=== PATIENT | female | born 1990 | race Two or more races ===

== ENCOUNTER 2023-08-27 15:15 | Inpatient (IN) ==
[2023-08-28] MEDS ORDERED: LIDOCAINE 1% LOCAL 20 ML VIAL INFIL PRN (08:11)
[2023-08-28] MEDS ORDERED: OXYTOCIN 30 UNITS/NSS 30 UNITS/500 ML BAG IV PRN ×2 (08:11→09:27)
[2023-08-28] MEDS: LACTATED RINGER'S 1,000 ML IV PRN ×4 (08:20→23:12)
[2023-08-28 08:48] LABS: Hematocrit (blood only) 36.1 % (37.0-47.0); Mean Corpuscular Hemoglobin 26.8 pg (25.0-34.0); Mean Corpuscular Hgb Conc 33.2 g/dL (32.0-36.0); Mean Corpuscular Volume 80.6 fL (80.0-100.0); Mean Platelet Volume 11.1 fL (9.4-12.4); Platelet Count 245 K/uL (130-400); RDW Coefficient of Variation 15.6 % (11.5-14.5); RDW Standard Deviation 45.1 fL (36.4-46.3); Red Blood Count 4.48 M/uL (4.20-5.40); White Blood Count 6.89 K/ul (4.8-10.8)
--- NOTE | 2023-08-28 09:03 | History & Physical Report ---
Date of Service August 28, 2023 Assessment & Plan (1) Encounter for induction of labor: (2) Postmaturity , 40-42 weeks gestation: Plan Fetus category one. Successful placement of doherty bulb, tolerated suprisingly well. Plan to start low dose pit and reassess. anticipate . Admission and Anticipated Discharge Date Admission Date: August 28, 2023 History of Present Illness Chief Complaint: iol postdates Primary Care Provider: NO PCP Patient is a 33yoif with iup at 40 3/7 weeks who presents to labor and delivery for iol for postdates. she notes occasional contraction. no lof/vb. Notes good fm. Patient did not tolerate exam in the office yesterday. After discussion, the patient would like to attempt placement of doherty bulb first and see how she tolerates. and Delivery Plans IOL Post-Dates 08/28 Poor tolerance of exam. OB Labs: Blood Type A Positive 01/16/23 Antibody Screen NEGATIVE 01/16/23 Hemoglobin 11.6 g/dl (12.0-16.0) L 07/18/23 Hematocrit 34.7 % (37.0-47.0) L 07/18/23 Mean Corpuscular Volume 81.1 fL (80.0-100.0) 07/18/23 Platelet Count 275 K/uL (130-400) 07/18/23 Rubella IgG Antibody Immune (Immune) 01/16/23 Rapid Plasma Reagin Nonreactive (Nonreactive) 01/16/23 Hepatitis B Surface Antigen. NON-REACTIVE (NON-REACTIVE) 01/16/23 Hepatitis C Antibody (EIA) NON-REACTIVE (NON-REACTIVE) 01/16/23 HIV (1&2) Ag and Ab Confirmation NON-REACTIVE (NON-REACTIVE) 01/16/23 Glucose 1 Hour 50 gm Load 97 mg/dl (70-130) 06/05/23 OB Optional Labs: Chlamydia trachomatis RNA Not Detected (NotDetected) 01/16/23 Neisseria gonorrhoeae RNA Not Detected (NotDetected) 01/16/23 Thyroid Stimulating Hormone (TSH) 0.621 uIu/ml (0.300-4.500) 01/03/23 Labs Reviewed: gbs negative--akh Allergies Allergy/AdvReac Type Severity Reaction Status Date / Time No Known Allergies Allergy Verified 08/27/23 14:32 Home Medications Medication Instructions Recorded Confirmed Type ondansetron 4 mg disintegrating 4 mg PO Q6H PRN nausea and 05/08/23 08/27/23 Rx tablet vomiting #30 tabs polysaccharide iron complex 150 mg 150 mg PO DAILY #30 caps 07/18/23 08/27/23 Rx iron capsule (iFerex 150) Patient History Medical History UTI (urinary tract infection) History of chicken pox Surgical History No history of previous surgery Family History Father PADMA-19 Denies family history of Ovarian cancer Breast cancer Colorectal cancer Social History Smoking Status: Never smoker Do You Dip or Chew Tobacco: No; Hx Alcohol Use: No Hx Substance Use: No Preferred Language: [place] Island[place] Radiation Control Technician Required: No Beliefs That Will Affect Care: None marital status: marital status details: Tavo (31) [phone] Current Living Situation: Spouse Current Living Situation Comment: lives with spouse, no pets current occupational status: unemployed Feels Safe at Home: Yes Safety Concerns: Feels Safe At This Time Assistive Devices: None OB History g1--present 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 Small amount of bleeding with placement. toco--occasional contraction efm--130s with mod variability, accels to 150s, no decels Results & Data Vital Signs (Past 12 Hours) Vital Signs Temp Pulse Resp BP 08/28/23 08:30 36.7 C 19 08/28/23 08:07 36.7 C 100 H 19 121/75 Coding Level of Care Code None Diagnoses Encounter for induction of labor Z34.90 Postmaturity , 40-42 weeks gestation O48.0
[2023-08-28] MEDS ORDERED: BUTORPHANOL TARTRATE 1 MG/ML VIAL IV ONE (13:17)
--- NOTE | 2023-08-28 13:17 | Labor Progress Brief Note ---
Date of Service August 28, 2023 Subjective Patient starting to get uncomfortable with contractions. NOtes back pain. WAs up to the br and ? lof. However, has not had continued leaking. Have pulled on catheter and still in cervix. Assessment & Plan (1) Postmaturity , 40-42 weeks gestation: (2) Encounter for induction of labor: Plan continue current management. fetus category one. can use stadol if desires. epidural on demand. Admission and Anticipated Discharge Date Admission Date: August 28, 2023 Physical Exam Constitutional: WD/WN, vitals as above Psychiatric: A+Ox3, euthymic affect Genitourinary: cx--deferred toco--q2-4min, pit at 6 efm--1130s with mod variability, small acces, no decels Results & Data Vital Signs (Past 12 Hours) Vital Signs Temp Pulse Resp BP 08/28/23 12:46 68 08/28/23 12:46 141/85 H 08/28/23 12:45 83 08/28/23 12:45 151/96 H 08/28/23 08:30 36.7 C 19 08/28/23 08:07 36.7 C 100 H 19 121/75 Coding Level of Care Code None Diagnoses Postmaturity , 40-42 weeks gestation O48.0 Encounter for induction of labor Z34.90
--- NOTE | 2023-08-28 16:17 | Labor Progress Brief Note ---
Date of Service August 28, 2023 Subjective Patient uncomfortable but breathing through contractions. c/o back pain Assessment & Plan (1) Postmaturity , 40-42 weeks gestation: (2) Encounter for induction of labor: Plan mostly category one, rare variable. continue current plan. Admission and Anticipated Discharge Date Admission Date: August 28, 2023 Physical Exam Physical Exam: cx--deferred pulled on balloon and did not budge toco--q3-4min, pit at 8 efm--130s wtih mod variability, accels present, rare variable Results & Data Vital Signs (Past 12 Hours) Vital Signs Temp Pulse Resp BP 08/28/23 16:14 76 08/28/23 16:14 123/79 08/28/23 15:47 71 08/28/23 15:47 109/67 08/28/23 15:17 71 08/28/23 15:17 134/78 08/28/23 14:47 71 08/28/23 14:47 128/80 08/28/23 14:18 20 08/28/23 14:18 20 08/28/23 14:18 75 08/28/23 14:18 140/85 08/28/23 13:17 63 08/28/23 13:17 123/75 08/28/23 12:46 68 08/28/23 12:46 141/85 H 08/28/23 12:45 83 08/28/23 12:45 151/96 H 08/28/23 08:30 36.7 C 19 08/28/23 08:07 36.7 C 100 H 19 121/75 Coding Level of Care Code None Diagnoses Postmaturity , 40-42 weeks gestation O48.0 Encounter for induction of labor Z34.90
--- NOTE | 2023-08-28 18:10 | Labor Progress Brief Note ---
Date of Service August 28, 2023 Subjective Patient sitting at bedside, breathing through contractions. Nursing notes lengthing of doherty and bloody show Assessment & Plan (1) Postmaturity , 40-42 weeks gestation: (2) Encounter for induction of labor: Plan doherty did a great job. Now likely in active labor. Plan epidural now. fetus overall category one. anticipate . Admission and Anticipated Discharge Date Admission Date: August 28, 2023 Physical Exam Physical Exam: balloon removed cs--4-5/80/-2, palpate a bag toco--q2-4min efm--140s wtih mod variability, accels present, rare variable Results & Data Vital Signs (Past 12 Hours) Vital Signs Temp Pulse Resp BP 08/28/23 16:14 76 08/28/23 16:14 123/79 08/28/23 15:47 71 08/28/23 15:47 109/67 08/28/23 15:17 71 08/28/23 15:17 134/78 08/28/23 14:47 71 08/28/23 14:47 128/80 08/28/23 14:18 20 08/28/23 14:18 20 08/28/23 14:18 75 08/28/23 14:18 140/85 08/28/23 13:17 63 08/28/23 13:17 123/75 08/28/23 12:46 68 08/28/23 12:46 141/85 H 08/28/23 12:45 83 08/28/23 12:45 151/96 H 08/28/23 08:30 36.7 C 19 08/28/23 08:07 36.7 C 100 H 19 121/75 Coding Level of Care Code None Diagnoses Postmaturity , 40-42 weeks gestation O48.0 Encounter for induction of labor Z34.90
[2023-08-28] MEDS ORDERED: ePHEDrine sulfate 50 MG/ML AMP ONE (18:12)
[2023-08-28] MEDS ORDERED: fentaNYL citrate PF 100 MCG/2 ML VIAL ONE (18:12)
[2023-08-28] MEDS ORDERED: SODIUM CHLORIDE 0.9% PF INJ 10 ML VIAL ONE (18:13)
[2023-08-28] MEDS ORDERED: LIDOCAINE 2%/EPINEPHRINE 1:200,000 20 ML PF ONE (18:13)
[2023-08-28] MEDS ORDERED: BUPIVACAINE 0.25% PF 30 ML VIAL ONE (18:13)
[2023-08-28] MEDS ORDERED: fentANYL 2 MCG/ML BUPIVacaine 0.125%-NSS 100ML BAG ONE (18:13)
--- NOTE | 2023-08-28 18:50 | Anesthesiology Consultation ---
Date of Service August 28, 2023 Assessment & Plan Chart Review Chart Review: Acceptable Risk for Labor Epidural Consults Requested none History Height/Weight Height: 5 ft 3 in Weight: 63.796 kg Allergies Allergy/AdvReac Type Severity Reaction Status Date / Time No Known Allergies Allergy Verified 08/27/23 14:32 Medications Home Medications Medication Instructions Recorded Confirmed Last Taken ondansetron 4 mg disintegrating 4 mg PO Q6H PRN nausea and 05/08/23 08/27/23 Unknown tablet vomiting #30 tabs polysaccharide iron complex 150 mg 150 mg PO DAILY #30 caps 07/18/23 08/27/23 Unknown iron capsule (iFerex 150) Active Medications Generic Name Dose Route Start Last Admin Trade Name Freq PRN Reason Stop Dose Admin Lactated Ringer's 1,000 mls @ 125 mls/hr 08/28/23 08:11 08/28/23 18:05 Lr IV 08/30/23 08:10 999 mls/hr .Q8H PRN Infusion L&D Protocol Protocol Oxytocin 30 units in 500 mls @ 11 mls/hr 08/28/23 09:27 08/28/23 17:38 Pitocin 30 Units/Nss IV 08/30/23 09:26 0.66 units/hr .Q24H PRN 11 mls/hr Labor Induction/Augmentation Titration Protocol 0.66 UNITS/HR Past Medical History Medical History UTI (urinary tract infection) History of chicken pox Past Family History Family History Father COVID-19 Denies family history of Ovarian cancer Breast cancer Colorectal cancer Past Surgical History Surgical History No history of previous surgery Social History Smoking Status: Never smoker Do You Dip or Chew Tobacco: No Hx Alcohol Use: No Hx Substance Use: No Physical Exam Vital Signs Last Vital Signs Temp 36.7 C 08/28/23 08:30 Pulse 117 H 08/28/23 18:47 Resp 20 08/28/23 14:18 BP 101/59 L 08/28/23 18:47 Pulse Ox 99 01/25/24 18:46 Testing Laboratory Results 08/28/23 08:25
[2023-08-28] MEDS ORDERED: ePHEDrine sulfate 50 MG/ML AMP IV PRN (18:52)
[2023-08-28] MEDS ORDERED: LIDOCAINE 2% MPF LOCAL 5 ML VIAL EPI PRN (18:52)
[2023-08-28] MEDS ORDERED: fentaNYL citrate PF 100 MCG/2 ML VIAL EPI PRN (18:52)
[2023-08-28] MEDS ORDERED: SODIUM CHLORIDE 0.9% PF INJ 10 ML VIAL EPI PRN (18:52)
[2023-08-28] MEDS ORDERED: LIDOCAINE 2%/EPINEPHRINE 1:200,000 20 ML PF EPI STA (18:52)
[2023-08-28] MEDS ORDERED: diphenhydrAMINE 50 MG/ML VIAL IV PRN (18:52)
[2023-08-28] MEDS ORDERED: SODIUM CHLORIDE 0.9% PF INJ 10 ML VIAL EPI STA (18:52)
[2023-08-28] MEDS ORDERED: NALOXONE HCL 0.4 MG/1 ML VIAL/CARP IV PRN (18:52)
[2023-08-28] MEDS ORDERED: BUPIVACAINE 0.25% PF 30 ML VIAL EPI PRN (18:52)
[2023-08-28] MEDS ORDERED: ROPIVACAINE 0.5% PF 5 MG/ML 20 ML VIAL EPI PRN (18:52)
[2023-08-28] MEDS ORDERED: fentANYL 2 MCG/ML BUPIVacaine 0.125%-NSS 100ML BAG EPI PRN (18:52)
[2023-08-28] MEDS ORDERED: BUPIVACAINE 0.25% PF 30 ML VIAL EPI STA (18:52)
[2023-08-28] MEDS ORDERED: fentaNYL citrate PF 100 MCG/2 ML VIAL EPI STA (18:52)
[2023-08-28] MEDS ORDERED: NALBUPHINE HCL 5 MG in SYRINGE 0 ML IV PRN (18:52)
[2023-08-28] MEDS ORDERED: NALOXONE HCL 1 MG in SODIUM CHLORIDE 0.9% 1,000 ML IV PRN (18:52)
--- NOTE | 2023-08-28 22:01 | Labor Progress Brief Note ---
Date of Service August 28, 2023 Subjective comfortable Assessment & Plan (1) Postmaturity , 40-42 weeks gestation: (2) Encounter for induction of labor: Plan continue current management. fetus overall reassuring category 2 secondary to variables. Admission and Anticipated Discharge Date Admission Date: August 28, 2023 Physical Exam Physical Exam: cx--5/80/-2 arom--clear toco--q3-4min, pit at 15 efm--150s with mod variability, small accels, +scalp stim, rare variable. Results & Data Vital Signs (Past 12 Hours) Vital Signs Temp Pulse Resp BP Pulse Ox O2 Del Method 08/28/23 21:56 97 08/28/23 21:56 100 H 08/28/23 21:55 82 08/28/23 21:55 104/61 08/28/23 21:51 99 08/28/23 21:51 91 H 08/28/23 21:46 99 08/28/23 21:46 103 H 08/28/23 21:41 98 08/28/23 21:41 80 08/28/23 21:41 85 08/28/23 21:41 107/68 08/28/23 21:36 97 08/28/23 21:36 77 08/28/23 21:31 98 08/28/23 21:31 104 H 08/28/23 21:30 16 08/28/23 21:30 16 08/28/23 21:26 97 08/28/23 21:26 88 08/28/23 21:21 98 08/28/23 21:21 88 08/28/23 21:16 98 08/28/23 21:16 75 08/28/23 21:11 98 08/28/23 21:11 96 H 08/28/23 21:06 98 08/28/23 21:06 76 08/28/23 21:01 98 08/28/23 21:01 93 H 08/28/23 21:00 16 08/28/23 21:00 16 08/28/23 20:56 99 08/28/23 20:56 74 08/28/23 20:55 85 08/28/23 20:55 115/67 08/28/23 20:51 99 08/28/23 20:51 84 08/28/23 20:46 97 08/28/23 20:46 72 08/28/23 20:41 98 08/28/23 20:41 78 08/28/23 20:40 18 08/28/23 20:40 36.8 C 18 08/28/23 20:40 97 H 08/28/23 20:40 106/61 08/28/23 20:36 100 08/28/23 20:36 111 H 08/28/23 20:31 99 08/28/23 20:31 86 08/28/23 20:31 114 H 08/28/23 20:31 114/70 08/28/23 20:30 18 08/28/23 20:30 18 08/28/23 20:26 98 08/28/23 20:26 65 08/28/23 20:26 125 H 08/28/23 20:26 104/71 08/28/23 20:22 75 08/28/23 20:22 125/74 08/28/23 20:21 97 08/28/23 20:21 70 08/28/23 20:17 71 08/28/23 20:17 138/63 08/28/23 20:16 98 08/28/23 20:16 74 08/28/23 20:12 67 08/28/23 20:12 123/70 08/28/23 20:11 97 08/28/23 20:11 66 08/28/23 20:06 99 08/28/23 20:06 124 H 08/28/23 20:06 69 08/28/23 20:06 126/72 08/28/23 20:01 97 08/28/23 20:01 123 H 08/28/23 20:01 76 08/28/23 20:01 123/73 08/28/23 20:00 16 08/28/23 20:00 16 08/28/23 19:56 98 08/28/23 19:56 67 08/28/23 19:56 126 H 08/28/23 19:56 86/61 L 08/28/23 19:51 97 08/28/23 19:51 71 08/28/23 19:51 125/71 08/28/23 19:46 97 08/28/23 19:46 71 08/28/23 19:46 122/68 08/28/23 19:41 99 08/28/23 19:41 72 08/28/23 19:41 108/65 08/28/23 19:36 99 08/28/23 19:36 67 08/28/23 19:31 98 08/28/23 19:31 79 08/28/23 19:30 16 08/28/23 19:30 16 08/28/23 19:30 72 08/28/23 19:30 131/70 08/28/23 19:26 99 08/28/23 19:26 110 H 08/28/23 19:22 106 H 08/28/23 19:22 93/51 L 08/28/23 19:21 98 08/28/23 19:21 103 H 08/28/23 19:20 Room Air 08/28/23 19:18 102 H 08/28/23 19:18 107/59 L 08/28/23 19:16 100 08/28/23 19:16 64 08/28/23 19:14 75 08/28/23 19:14 118/69 08/28/23 19:13 18 08/28/23 19:13 36.6 C 18 08/28/23 19:11 98 08/28/23 19:11 99 H 08/28/23 19:09 110 H 08/28/23 19:09 114/70 08/28/23 19:08 96 H 08/28/23 19:08 106/66 08/28/23 19:06 100 08/28/23 19:06 95 H 08/28/23 19:05 74 08/28/23 19:05 134/75 08/28/23 19:04 80 08/28/23 19:04 122/72 08/28/23 19:01 98 08/28/23 19:01 96 H 08/28/23 19:01 104/68 08/28/23 18:59 87 08/28/23 18:59 102/61 08/28/23 18:57 75 08/28/23 18:57 96/53 L 08/28/23 18:56 100 08/28/23 18:56 76 08/28/23 18:56 98/56 L 08/28/23 18:56 92 H 08/28/23 18:56 91/42 L 08/28/23 18:54 92 H 08/28/23 18:54 136/57 L 08/28/23 18:52 107 H 08/28/23 18:52 118/69 08/28/23 18:51 98 08/28/23 18:51 110 H 08/28/23 18:49 85 08/28/23 18:49 106/55 L 08/28/23 18:47 117 H 08/28/23 18:47 101/59 L 08/28/23 18:46 99 08/28/23 18:46 109 H 08/28/23 18:45 98 H 08/28/23 18:45 107/57 L 08/28/23 18:43 102 H 08/28/23 18:43 106/60 08/28/23 18:41 98 08/28/23 18:41 71 08/28/23 18:41 113/63 08/28/23 18:39 78 08/28/23 18:39 121/74 08/28/23 18:38 71 08/28/23 18:38 131/71 08/28/23 18:36 100 08/28/23 18:36 83 08/28/23 18:31 99 08/28/23 18:31 76 08/28/23 18:26 75 L 08/28/23 18:26 87 08/28/23 18:26 74 L 08/28/23 18:26 87 08/28/23 16:14 76 08/28/23 16:14 123/79 08/28/23 15:47 71 08/28/23 15:47 109/67 08/28/23 15:17 71 08/28/23 15:17 134/78 08/28/23 14:47 71 08/28/23 14:47 128/80 08/28/23 14:18 20 08/28/23 14:18 20 08/28/23 14:18 75 08/28/23 14:18 140/85 08/28/23 13:17 63 08/28/23 13:17 123/75 08/28/23 12:46 68 08/28/23 12:46 141/85 H 08/28/23 12:45 83 08/28/23 12:45 151/96 H Coding Level of Care Code None Diagnoses Postmaturity , 40-42 weeks gestation O48.0 Encounter for induction of labor Z34.90
[2023-08-28] MEDS ORDERED: ONDANSETRON INJ 2 MG/ML 2 ML VIAL IV PRN (22:05)
--- NOTE | 2023-08-29 00:28 | Labor Progress Brief Note ---
Date of Service August 29, 2023 Subjective comfortable , resting Assessment & Plan (1) Postmaturity , 40-42 weeks gestation: (2) Encounter for induction of labor: Plan baby is now category two from tachycardia and variables. variability remains reassuring. Not making alot of progress. Concerned we are still really remote from delivery. Will continue at this point and will monitor the baby closely. Discussed the potential for c/s for them as remote from delivery if strip gets more concerning. Admission and Anticipated Discharge Date Admission Date: August 28, 2023 Physical Exam Physical Exam: cx--6/80/-2 toco--q2-4min, pit at 16 efm--165 wtih mod variability, variable/early with some contractions Results & Data Vital Signs (Past 12 Hours) Vital Signs Temp Pulse Resp BP Pulse Ox O2 Del Method 08/29/23 00:21 105 H 98 08/29/23 00:16 86 96 08/29/23 00:12 83 128/80 08/29/23 00:11 88 97 08/29/23 00:06 76 98 08/29/23 00:01 98 H 98 08/29/23 00:00 16 08/29/23 00:00 16 08/28/23 23:56 97 08/28/23 23:56 86 08/28/23 23:55 74 08/28/23 23:55 111/59 L 08/28/23 23:51 97 08/28/23 23:51 75 08/28/23 23:46 97 08/28/23 23:46 122 H 08/28/23 23:44 37.1 C 08/28/23 23:41 96 08/28/23 23:41 80 08/28/23 23:40 83 08/28/23 23:40 121/69 08/28/23 23:36 97 08/28/23 23:36 86 08/28/23 23:31 96 08/28/23 23:31 81 08/28/23 23:30 16 08/28/23 23:30 16 08/28/23 23:26 96 08/28/23 23:26 81 08/28/23 23:25 95 H 08/28/23 23:25 108/67 08/28/23 23:21 96 08/28/23 23:21 90 08/28/23 23:16 97 08/28/23 23:16 108 H 08/28/23 23:13 37.5 C 08/28/23 23:11 97 08/28/23 23:11 92 H 08/28/23 23:11 101 H 08/28/23 23:11 122/73 08/28/23 23:06 96 08/28/23 23:06 90 08/28/23 23:01 96 08/28/23 23:01 109 H 08/28/23 23:00 16 08/28/23 23:00 16 08/28/23 22:56 96 08/28/23 22:56 82 08/28/23 22:55 88 08/28/23 22:55 112/64 08/28/23 22:51 96 08/28/23 22:51 85 08/28/23 22:46 96 08/28/23 22:46 101 H 08/28/23 22:41 97 08/28/23 22:41 79 08/28/23 22:41 93 H 08/28/23 22:41 109/66 08/28/23 22:36 97 08/28/23 22:36 79 08/28/23 22:31 97 08/28/23 22:31 104 H 08/28/23 22:30 16 08/28/23 22:30 16 08/28/23 22:26 96 08/28/23 22:26 83 08/28/23 22:25 77 08/28/23 22:25 112/59 L 08/28/23 22:21 96 08/28/23 22:21 80 08/28/23 22:16 96 08/28/23 22:16 86 08/28/23 22:13 111 H 08/28/23 22:13 106/59 L 08/28/23 22:11 97 08/28/23 22:11 78 08/28/23 22:10 93 H 08/28/23 22:10 101/57 L 08/28/23 22:06 97 08/28/23 22:06 81 08/28/23 22:01 97 08/28/23 22:01 88 08/28/23 22:00 16 08/28/23 22:00 16 08/28/23 21:56 97 08/28/23 21:56 100 H 08/28/23 21:55 82 08/28/23 21:55 104/61 08/28/23 21:51 99 08/28/23 21:51 91 H 08/28/23 21:49 36.7 C 08/28/23 21:46 99 08/28/23 21:46 103 H 08/28/23 21:41 98 08/28/23 21:41 80 08/28/23 21:41 85 08/28/23 21:41 107/68 08/28/23 21:36 97 08/28/23 21:36 77 08/28/23 21:31 98 08/28/23 21:31 104 H 08/28/23 21:30 16 08/28/23 21:30 16 08/28/23 21:26 97 08/28/23 21:26 88 08/28/23 21:21 98 08/28/23 21:21 88 08/28/23 21:16 98 08/28/23 21:16 75 08/28/23 21:11 98 08/28/23 21:11 96 H 08/28/23 21:06 98 08/28/23 21:06 76 08/28/23 21:01 98 08/28/23 21:01 93 H 08/28/23 21:00 16 08/28/23 21:00 16 08/28/23 20:56 99 08/28/23 20:56 74 08/28/23 20:55 85 08/28/23 20:55 115/67 08/28/23 20:51 99 08/28/23 20:51 84 08/28/23 20:46 97 08/28/23 20:46 72 08/28/23 20:41 98 08/28/23 20:41 78 08/28/23 20:40 18 08/28/23 20:40 36.8 C 18 08/28/23 20:40 97 H 08/28/23 20:40 106/61 08/28/23 20:36 100 08/28/23 20:36 111 H 08/28/23 20:31 99 08/28/23 20:31 86 08/28/23 20:31 114 H 08/28/23 20:31 114/70 08/28/23 20:30 18 08/28/23 20:30 18 08/28/23 20:26 98 08/28/23 20:26 65 08/28/23 20:26 125 H 08/28/23 20:26 104/71 08/28/23 20:22 75 08/28/23 20:22 125/74 08/28/23 20:21 97 08/28/23 20:21 70 08/28/23 20:17 71 08/28/23 20:17 138/63 08/28/23 20:16 98 08/28/23 20:16 74 08/28/23 20:12 67 08/28/23 20:12 123/70 08/28/23 20:11 97 08/28/23 20:11 66 08/28/23 20:06 99 08/28/23 20:06 124 H 08/28/23 20:06 69 08/28/23 20:06 126/72 08/28/23 20:01 97 08/28/23 20:01 123 H 08/28/23 20:01 76 08/28/23 20:01 123/73 08/28/23 20:00 16 08/28/23 20:00 16 08/28/23 19:56 98 08/28/23 19:56 67 08/28/23 19:56 126 H 08/28/23 19:56 86/61 L 08/28/23 19:51 97 08/28/23 19:51 71 08/28/23 19:51 125/71 08/28/23 19:46 97 08/28/23 19:46 71 08/28/23 19:46 122/68 08/28/23 19:41 99 08/28/23 19:41 72 08/28/23 19:41 108/65 08/28/23 19:36 99 08/28/23 19:36 67 08/28/23 19:31 98 08/28/23 19:31 79 08/28/23 19:30 16 08/28/23 19:30 16 08/28/23 19:30 72 08/28/23 19:30 131/70 08/28/23 19:26 99 08/28/23 19:26 110 H 08/28/23 19:22 106 H 08/28/23 19:22 93/51 L 08/28/23 19:21 98 08/28/23 19:21 103 H 08/28/23 19:20 Room Air 08/28/23 19:18 102 H 08/28/23 19:18 107/59 L 08/28/23 19:16 100 08/28/23 19:16 64 08/28/23 19:14 75 08/28/23 19:14 118/69 08/28/23 19:13 18 08/28/23 19:13 36.6 C 18 08/28/23 19:11 98 08/28/23 19:11 99 H 08/28/23 19:09 110 H 08/28/23 19:09 114/70 08/28/23 19:08 96 H 08/28/23 19:08 106/66 08/28/23 19:06 100 08/28/23 19:06 95 H 08/28/23 19:05 74 08/28/23 19:05 134/75 08/28/23 19:04 80 08/28/23 19:04 122/72 08/28/23 19:01 98 08/28/23 19:01 96 H 08/28/23 19:01 104/68 08/28/23 18:59 87 08/28/23 18:59 102/61 08/28/23 18:57 75 08/28/23 18:57 96/53 L 08/28/23 18:56 100 08/28/23 18:56 76 08/28/23 18:56 98/56 L 08/28/23 18:56 92 H 08/28/23 18:56 91/42 L 08/28/23 18:54 92 H 08/28/23 18:54 136/57 L 08/28/23 18:52 107 H 08/28/23 18:52 118/69 08/28/23 18:51 98 08/28/23 18:51 110 H 08/28/23 18:49 85 08/28/23 18:49 106/55 L 08/28/23 18:47 117 H 08/28/23 18:47 101/59 L 08/28/23 18:46 99 08/28/23 18:46 109 H 08/28/23 18:45 98 H 08/28/23 18:45 107/57 L 08/28/23 18:43 102 H 08/28/23 18:43 106/60 08/28/23 18:41 98 08/28/23 18:41 71 08/28/23 18:41 113/63 08/28/23 18:39 78 08/28/23 18:39 121/74 08/28/23 18:38 71 08/28/23 18:38 131/71 08/28/23 18:36 100 08/28/23 18:36 83 08/28/23 18:31 99 08/28/23 18:31 76 08/28/23 18:26 75 L 08/28/23 18:26 87 08/28/23 18:26 74 L 08/28/23 18:26 87 08/28/23 16:14 76 08/28/23 16:14 123/79 08/28/23 15:47 71 08/28/23 15:47 109/67 08/28/23 15:17 71 08/28/23 15:17 134/78 08/28/23 14:47 71 08/28/23 14:47 128/80 08/28/23 14:18 20 08/28/23 14:18 20 08/28/23 14:18 75 08/28/23 14:18 140/85 08/28/23 13:17 63 08/28/23 13:17 123/75 08/28/23 12:46 68 08/28/23 12:46 141/85 H 08/28/23 12:45 83 08/28/23 12:45 151/96 H Coding Level of Care Code None Diagnoses Postmaturity , 40-42 weeks gestation O48.0 Encounter for induction of labor Z34.90
--- NOTE | 2023-08-29 01:39 | Labor Progress Brief Note ---
Date of Service August 29, 2023 Subjective comfortable Assessment & Plan (1) Postmaturity , 40-42 weeks gestation: (2) Encounter for induction of labor: Plan persistent tachycardia. not making change. now meconium. iupc placed to evaluate contractions. If contractions adequate, likely have been for some time and still remote from delivery. Admission and Anticipated Discharge Date Admission Date: August 28, 2023 Physical Exam Physical Exam: cx--5-6/80/-2 iupc placed--tin brown mec noted toco--q3-4min efm--165wtih mod variability, early with contractions, +scalp stim Results & Data Vital Signs (Past 12 Hours) Vital Signs Temp Pulse Resp BP Pulse Ox O2 Del Method 08/29/23 01:31 111 H 100 08/29/23 01:26 80 97 08/29/23 01:21 106 H 96 08/29/23 01:16 98 H 115/77 96 08/29/23 01:11 107 H 97 08/29/23 01:06 106 H 96 08/29/23 01:01 106 H 121/74 97 08/29/23 01:00 16 08/29/23 01:00 16 08/29/23 00:56 81 96 08/29/23 00:51 82 96 08/29/23 00:47 108 H 128/80 08/29/23 00:46 101 H 98 08/29/23 00:41 80 96 08/29/23 00:36 109 H 97 08/29/23 00:31 94 H 124/71 97 08/29/23 00:30 18 08/29/23 00:30 18 08/29/23 00:26 91 H 98 08/29/23 00:22 37.1 C 08/29/23 00:21 105 H 98 08/29/23 00:16 86 96 08/29/23 00:12 83 128/80 08/29/23 00:11 88 97 08/29/23 00:06 76 98 08/29/23 00:01 98 H 98 08/29/23 00:00 16 08/29/23 00:00 16 08/28/23 23:56 97 08/28/23 23:56 86 08/28/23 23:55 74 08/28/23 23:55 111/59 L 08/28/23 23:51 97 08/28/23 23:51 75 08/28/23 23:46 97 08/28/23 23:46 122 H 08/28/23 23:44 37.1 C 08/28/23 23:41 96 08/28/23 23:41 80 08/28/23 23:40 83 08/28/23 23:40 121/69 08/28/23 23:36 97 08/28/23 23:36 86 08/28/23 23:31 96 08/28/23 23:31 81 08/28/23 23:30 16 08/28/23 23:30 16 08/28/23 23:26 96 08/28/23 23:26 81 08/28/23 23:25 95 H 08/28/23 23:25 108/67 08/28/23 23:21 96 08/28/23 23:21 90 08/28/23 23:16 97 08/28/23 23:16 108 H 08/28/23 23:13 37.5 C 08/28/23 23:11 97 08/28/23 23:11 92 H 08/28/23 23:11 101 H 08/28/23 23:11 122/73 08/28/23 23:06 96 08/28/23 23:06 90 08/28/23 23:01 96 08/28/23 23:01 109 H 08/28/23 23:00 16 08/28/23 23:00 16 08/28/23 22:56 96 08/28/23 22:56 82 08/28/23 22:55 88 08/28/23 22:55 112/64 08/28/23 22:51 96 08/28/23 22:51 85 08/28/23 22:46 96 08/28/23 22:46 101 H 08/28/23 22:41 97 08/28/23 22:41 79 08/28/23 22:41 93 H 08/28/23 22:41 109/66 08/28/23 22:36 97 08/28/23 22:36 79 08/28/23 22:31 97 08/28/23 22:31 104 H 08/28/23 22:30 16 08/28/23 22:30 16 08/28/23 22:26 96 08/28/23 22:26 83 08/28/23 22:25 77 08/28/23 22:25 112/59 L 08/28/23 22:21 96 08/28/23 22:21 80 08/28/23 22:16 96 08/28/23 22:16 86 08/28/23 22:13 111 H 08/28/23 22:13 106/59 L 08/28/23 22:11 97 08/28/23 22:11 78 08/28/23 22:10 93 H 08/28/23 22:10 101/57 L 08/28/23 22:06 97 08/28/23 22:06 81 08/28/23 22:01 97 08/28/23 22:01 88 08/28/23 22:00 16 08/28/23 22:00 16 08/28/23 21:56 97 08/28/23 21:56 100 H 08/28/23 21:55 82 08/28/23 21:55 104/61 08/28/23 21:51 99 08/28/23 21:51 91 H 08/28/23 21:49 36.7 C 08/28/23 21:46 99 08/28/23 21:46 103 H 08/28/23 21:41 98 08/28/23 21:41 80 08/28/23 21:41 85 08/28/23 21:41 107/68 08/28/23 21:36 97 08/28/23 21:36 77 08/28/23 21:31 98 08/28/23 21:31 104 H 08/28/23 21:30 16 08/28/23 21:30 16 08/28/23 21:26 97 08/28/23 21:26 88 08/28/23 21:21 98 08/28/23 21:21 88 08/28/23 21:16 98 08/28/23 21:16 75 08/28/23 21:11 98 08/28/23 21:11 96 H 08/28/23 21:06 98 08/28/23 21:06 76 08/28/23 21:01 98 08/28/23 21:01 93 H 08/28/23 21:00 16 08/28/23 21:00 16 08/28/23 20:56 99 08/28/23 20:56 74 08/28/23 20:55 85 08/28/23 20:55 115/67 08/28/23 20:51 99 08/28/23 20:51 84 08/28/23 20:46 97 08/28/23 20:46 72 08/28/23 20:41 98 08/28/23 20:41 78 08/28/23 20:40 18 08/28/23 20:40 36.8 C 18 08/28/23 20:40 97 H 08/28/23 20:40 106/61 08/28/23 20:36 100 08/28/23 20:36 111 H 08/28/23 20:31 99 08/28/23 20:31 86 08/28/23 20:31 114 H 08/28/23 20:31 114/70 08/28/23 20:30 18 08/28/23 20:30 18 08/28/23 20:26 98 08/28/23 20:26 65 08/28/23 20:26 125 H 08/28/23 20:26 104/71 08/28/23 20:22 75 08/28/23 20:22 125/74 08/28/23 20:21 97 08/28/23 20:21 70 08/28/23 20:17 71 08/28/23 20:17 138/63 08/28/23 20:16 98 08/28/23 20:16 74 08/28/23 20:12 67 08/28/23 20:12 123/70 08/28/23 20:11 97 08/28/23 20:11 66 08/28/23 20:06 99 08/28/23 20:06 124 H 08/28/23 20:06 69 08/28/23 20:06 126/72 08/28/23 20:01 97 08/28/23 20:01 123 H 08/28/23 20:01 76 08/28/23 20:01 123/73 08/28/23 20:00 16 08/28/23 20:00 16 08/28/23 19:56 98 08/28/23 19:56 67 08/28/23 19:56 126 H 08/28/23 19:56 86/61 L 08/28/23 19:51 97 08/28/23 19:51 71 08/28/23 19:51 125/71 08/28/23 19:46 97 08/28/23 19:46 71 08/28/23 19:46 122/68 08/28/23 19:41 99 08/28/23 19:41 72 08/28/23 19:41 108/65 08/28/23 19:36 99 08/28/23 19:36 67 08/28/23 19:31 98 08/28/23 19:31 79 08/28/23 19:30 16 08/28/23 19:30 16 08/28/23 19:30 72 08/28/23 19:30 131/70 08/28/23 19:26 99 08/28/23 19:26 110 H 08/28/23 19:22 106 H 08/28/23 19:22 93/51 L 08/28/23 19:21 98 08/28/23 19:21 103 H 08/28/23 19:20 Room Air 08/28/23 19:18 102 H 08/28/23 19:18 107/59 L 08/28/23 19:16 100 08/28/23 19:16 64 08/28/23 19:14 75 08/28/23 19:14 118/69 08/28/23 19:13 18 08/28/23 19:13 36.6 C 18 08/28/23 19:11 98 08/28/23 19:11 99 H 08/28/23 19:09 110 H 08/28/23 19:09 114/70 08/28/23 19:08 96 H 08/28/23 19:08 106/66 08/28/23 19:06 100 08/28/23 19:06 95 H 08/28/23 19:05 74 08/28/23 19:05 134/75 08/28/23 19:04 80 08/28/23 19:04 122/72 08/28/23 19:01 98 08/28/23 19:01 96 H 08/28/23 19:01 104/68 08/28/23 18:59 87 08/28/23 18:59 102/61 08/28/23 18:57 75 08/28/23 18:57 96/53 L 08/28/23 18:56 100 08/28/23 18:56 76 08/28/23 18:56 98/56 L 08/28/23 18:56 92 H 08/28/23 18:56 91/42 L 08/28/23 18:54 92 H 08/28/23 18:54 136/57 L 08/28/23 18:52 107 H 08/28/23 18:52 118/69 08/28/23 18:51 98 08/28/23 18:51 110 H 08/28/23 18:49 85 08/28/23 18:49 106/55 L 08/28/23 18:47 117 H 08/28/23 18:47 101/59 L 08/28/23 18:46 99 08/28/23 18:46 109 H 08/28/23 18:45 98 H 08/28/23 18:45 107/57 L 08/28/23 18:43 102 H 08/28/23 18:43 106/60 08/28/23 18:41 98 08/28/23 18:41 71 08/28/23 18:41 113/63 08/28/23 18:39 78 08/28/23 18:39 121/74 08/28/23 18:38 71 08/28/23 18:38 131/71 08/28/23 18:36 100 08/28/23 18:36 83 08/28/23 18:31 99 08/28/23 18:31 76 08/28/23 18:26 75 L 08/28/23 18:26 87 08/28/23 18:26 74 L 08/28/23 18:26 87 08/28/23 16:14 76 08/28/23 16:14 123/79 08/28/23 15:47 71 08/28/23 15:47 109/67 08/28/23 15:17 71 08/28/23 15:17 134/78 08/28/23 14:47 71 08/28/23 14:47 128/80 08/28/23 14:18 20 08/28/23 14:18 20 08/28/23 14:18 75 08/28/23 14:18 140/85 Coding Level of Care Code None Diagnoses Postmaturity , 40-42 weeks gestation O48.0 Encounter for induction of labor Z34.90
--- NOTE | 2023-08-29 03:02 | Communication Note ---
Date of Service: August 29, 2023 checked by nursing because of feeling pressure. Notes 7 and definitely lower. efm--170 with mod variability, small accels, early/variable with contractions. some have appeared late but resolve with position. Contractions have been adequate since placement of iupc. Continue to closely montiro.
[2023-08-29] MEDS: LACTATED RINGER'S 1,000 ML IV PRN (03:45)
[2023-08-29] MEDS ORDERED: NURSING L&D Epidural Breakthrough Pain Update ONE (03:48)
--- NOTE | 2023-08-29 04:25 | Labor Progress Brief Note ---
Date of Service August 29, 2023 Subjective feeling lots of rectal pressure with contractions. Assessment & Plan (1) Postmaturity , 40-42 weeks gestation: (2) Encounter for induction of labor: Plan Making good progress. tachy but good variability, and small accels. will need epidural redose. continue current management with careful monitoring. Admission and Anticipated Discharge Date Admission Date: August 28, 2023 Physical Exam Physical Exam: cx--8/100/0 toco--q 2-3min, pit at 18 efm--170s with mod variability, small accels, earlies with contractions. Results & Data Vital Signs (Past 12 Hours) Vital Signs Temp Pulse Resp BP Pulse Ox O2 Del Method 08/29/23 04:21 86 97 08/29/23 04:19 84 114/59 L 08/29/23 04:16 93 H 98 08/29/23 04:11 79 96 08/29/23 04:06 79 96 08/29/23 04:03 73 141/77 H 08/29/23 04:01 76 96 08/29/23 04:00 16 08/29/23 04:00 16 08/29/23 03:56 77 97 08/29/23 03:51 82 97 08/29/23 03:48 76 135/77 08/29/23 03:46 81 97 08/29/23 03:41 79 98 08/29/23 03:36 74 97 08/29/23 03:33 73 135/78 08/29/23 03:31 75 96 08/29/23 03:26 77 97 08/29/23 03:21 74 97 08/29/23 03:18 74 136/79 08/29/23 03:16 75 97 08/29/23 03:11 86 97 08/29/23 03:06 90 96 08/29/23 03:03 77 130/63 08/29/23 03:01 83 95 08/29/23 03:00 18 08/29/23 03:00 18 08/29/23 03:00 18 08/29/23 03:00 18 08/29/23 02:56 80 97 08/29/23 02:51 76 96 08/29/23 02:47 37.6 C H 08/29/23 02:47 37.6 C H 75 121/64 08/29/23 02:46 76 97 08/29/23 02:44 78 123/56 L 08/29/23 02:41 106 H 97 08/29/23 02:36 80 96 08/29/23 02:31 76 97 08/29/23 02:30 16 08/29/23 02:30 16 08/29/23 02:26 80 96 08/29/23 02:21 80 97 08/29/23 02:18 78 134/70 08/29/23 02:16 79 97 08/29/23 02:11 86 98 08/29/23 02:06 80 97 08/29/23 02:03 79 136/77 08/29/23 02:01 84 97 08/29/23 02:00 16 08/29/23 02:00 16 08/29/23 01:56 78 97 08/29/23 01:51 83 97 08/29/23 01:47 76 132/72 08/29/23 01:46 77 97 08/29/23 01:45 37.5 C 08/29/23 01:41 85 97 08/29/23 01:36 122 H 98 08/29/23 01:31 111 H 100 08/29/23 01:30 18 08/29/23 01:30 18 08/29/23 01:26 80 97 08/29/23 01:21 106 H 96 08/29/23 01:16 98 H 115/77 96 08/29/23 01:11 107 H 97 08/29/23 01:06 106 H 96 08/29/23 01:01 106 H 121/74 97 08/29/23 01:00 16 08/29/23 01:00 16 08/29/23 00:56 81 96 08/29/23 00:51 82 96 08/29/23 00:47 108 H 128/80 08/29/23 00:46 101 H 98 08/29/23 00:41 80 96 08/29/23 00:36 109 H 97 08/29/23 00:31 94 H 124/71 97 08/29/23 00:30 18 08/29/23 00:30 18 08/29/23 00:26 91 H 98 08/29/23 00:22 37.1 C 08/29/23 00:21 105 H 98 08/29/23 00:16 86 96 01/26/24 00:12 83 128/80 08/29/23 00:11 88 97 08/29/23 00:06 76 98 08/29/23 00:01 98 H 98 08/29/23 00:00 16 08/29/23 00:00 16 08/28/23 23:56 97 08/28/23 23:56 86 08/28/23 23:55 74 08/28/23 23:55 111/59 L 08/28/23 23:51 97 08/28/23 23:51 75 08/28/23 23:46 97 08/28/23 23:46 122 H 08/28/23 23:44 37.1 C 08/28/23 23:41 96 08/28/23 23:41 80 08/28/23 23:40 83 08/28/23 23:40 121/69 08/28/23 23:36 97 08/28/23 23:36 86 08/28/23 23:31 96 08/28/23 23:31 81 08/28/23 23:30 16 08/28/23 23:30 16 08/28/23 23:26 96 08/28/23 23:26 81 08/28/23 23:25 95 H 08/28/23 23:25 108/67 08/28/23 23:21 96 08/28/23 23:21 90 08/28/23 23:16 97 08/28/23 23:16 108 H 08/28/23 23:13 37.5 C 08/28/23 23:11 97 08/28/23 23:11 92 H 08/28/23 23:11 101 H 08/28/23 23:11 122/73 08/28/23 23:06 96 08/28/23 23:06 90 08/28/23 23:01 96 08/28/23 23:01 109 H 08/28/23 23:00 16 08/28/23 23:00 16 08/28/23 22:56 96 08/28/23 22:56 82 08/28/23 22:55 88 08/28/23 22:55 112/64 08/28/23 22:51 96 08/28/23 22:51 85 08/28/23 22:46 96 08/28/23 22:46 101 H 08/28/23 22:41 97 08/28/23 22:41 79 08/28/23 22:41 93 H 08/28/23 22:41 109/66 08/28/23 22:36 97 08/28/23 22:36 79 08/28/23 22:31 97 08/28/23 22:31 104 H 08/28/23 22:30 16 08/28/23 22:30 16 08/28/23 22:26 96 08/28/23 22:26 83 08/28/23 22:25 77 08/28/23 22:25 112/59 L 08/28/23 22:21 96 08/28/23 22:21 80 08/28/23 22:16 96 08/28/23 22:16 86 08/28/23 22:13 111 H 08/28/23 22:13 106/59 L 08/28/23 22:11 97 08/28/23 22:11 78 08/28/23 22:10 93 H 08/28/23 22:10 101/57 L 08/28/23 22:06 97 08/28/23 22:06 81 08/28/23 22:01 97 08/28/23 22:01 88 08/28/23 22:00 16 08/28/23 22:00 16 08/28/23 21:56 97 08/28/23 21:56 100 H 08/28/23 21:55 82 08/28/23 21:55 104/61 08/28/23 21:51 99 08/28/23 21:51 91 H 08/28/23 21:49 36.7 C 08/28/23 21:46 99 08/28/23 21:46 103 H 08/28/23 21:41 98 08/28/23 21:41 80 08/28/23 21:41 85 08/28/23 21:41 107/68 08/28/23 21:36 97 08/28/23 21:36 77 08/28/23 21:31 98 08/28/23 21:31 104 H 08/28/23 21:30 16 08/28/23 21:30 16 08/28/23 21:26 97 08/28/23 21:26 88 08/28/23 21:21 98 08/28/23 21:21 88 08/28/23 21:16 98 08/28/23 21:16 75 08/28/23 21:11 98 08/28/23 21:11 96 H 08/28/23 21:06 98 08/28/23 21:06 76 08/28/23 21:01 98 08/28/23 21:01 93 H 08/28/23 21:00 16 08/28/23 21:00 16 08/28/23 20:56 99 08/28/23 20:56 74 08/28/23 20:55 85 08/28/23 20:55 115/67 08/28/23 20:51 99 08/28/23 20:51 84 08/28/23 20:46 97 08/28/23 20:46 72 08/28/23 20:41 98 08/28/23 20:41 78 08/28/23 20:40 18 08/28/23 20:40 36.8 C 18 08/28/23 20:40 97 H 08/28/23 20:40 106/61 08/28/23 20:36 100 08/28/23 20:36 111 H 08/28/23 20:31 99 08/28/23 20:31 86 08/28/23 20:31 114 H 08/28/23 20:31 114/70 08/28/23 20:30 18 08/28/23 20:30 18 08/28/23 20:26 98 08/28/23 20:26 65 08/28/23 20:26 125 H 08/28/23 20:26 104/71 08/28/23 20:22 75 08/28/23 20:22 125/74 08/28/23 20:21 97 08/28/23 20:21 70 08/28/23 20:17 71 08/28/23 20:17 138/63 08/28/23 20:16 98 08/28/23 20:16 74 08/28/23 20:12 67 08/28/23 20:12 123/70 08/28/23 20:11 97 08/28/23 20:11 66 08/28/23 20:06 99 08/28/23 20:06 124 H 08/28/23 20:06 69 08/28/23 20:06 126/72 08/28/23 20:01 97 08/28/23 20:01 123 H 08/28/23 20:01 76 08/28/23 20:01 123/73 08/28/23 20:00 16 08/28/23 20:00 16 08/28/23 19:56 98 08/28/23 19:56 67 08/28/23 19:56 126 H 08/28/23 19:56 86/61 L 08/28/23 19:51 97 08/28/23 19:51 71 08/28/23 19:51 125/71 08/28/23 19:46 97 08/28/23 19:46 71 08/28/23 19:46 122/68 08/28/23 19:41 99 08/28/23 19:41 72 08/28/23 19:41 108/65 08/28/23 19:36 99 08/28/23 19:36 67 08/28/23 19:31 98 08/28/23 19:31 79 08/28/23 19:30 16 08/28/23 19:30 16 08/28/23 19:30 72 08/28/23 19:30 131/70 08/28/23 19:26 99 08/28/23 19:26 110 H 08/28/23 19:22 106 H 08/28/23 19:22 93/51 L 08/28/23 19:21 98 08/28/23 19:21 103 H 08/28/23 19:20 Room Air 08/28/23 19:18 102 H 08/28/23 19:18 107/59 L 08/28/23 19:16 100 08/28/23 19:16 64 08/28/23 19:14 75 08/28/23 19:14 118/69 08/28/23 19:13 18 08/28/23 19:13 36.6 C 18 08/28/23 19:11 98 08/28/23 19:11 99 H 08/28/23 19:09 110 H 08/28/23 19:09 114/70 08/28/23 19:08 96 H 08/28/23 19:08 106/66 08/28/23 19:06 100 08/28/23 19:06 95 H 08/28/23 19:05 74 08/28/23 19:05 134/75 08/28/23 19:04 80 08/28/23 19:04 122/72 08/28/23 19:01 98 08/28/23 19:01 96 H 08/28/23 19:01 104/68 08/28/23 18:59 87 08/28/23 18:59 102/61 08/28/23 18:57 75 08/28/23 18:57 96/53 L 08/28/23 18:56 100 08/28/23 18:56 76 08/28/23 18:56 98/56 L 08/28/23 18:56 92 H 08/28/23 18:56 91/42 L 08/28/23 18:54 92 H 08/28/23 18:54 136/57 L 08/28/23 18:52 107 H 08/28/23 18:52 118/69 08/28/23 18:51 98 08/28/23 18:51 110 H 08/28/23 18:49 85 08/28/23 18:49 106/55 L 08/28/23 18:47 117 H 08/28/23 18:47 101/59 L 08/28/23 18:46 99 08/28/23 18:46 109 H 08/28/23 18:45 98 H 08/28/23 18:45 107/57 L 08/28/23 18:43 102 H 08/28/23 18:43 106/60 08/28/23 18:41 98 08/28/23 18:41 71 08/28/23 18:41 113/63 08/28/23 18:39 78 08/28/23 18:39 121/74 08/28/23 18:38 71 08/28/23 18:38 131/71 08/28/23 18:36 100 08/28/23 18:36 83 08/28/23 18:31 99 08/28/23 18:31 76 08/28/23 18:26 75 L 08/28/23 18:26 87 08/28/23 18:26 74 L 08/28/23 18:26 87 Coding Level of Care Code None Diagnoses Postmaturity , 40-42 weeks gestation O48.0 Encounter for induction of labor Z34.90
[2023-08-29] MEDS ORDERED: fentaNYL citrate PF 100 MCG/2 ML VIAL ONE (04:36)
--- NOTE | 2023-08-29 04:44 | Anesthesia Procedure Note ---
Date of Service August 29, 2023 Anesthesia Epidural Re-Dose Vital Signs Temp Pulse Resp BP Pulse Ox O2 Del Method 36.7 C 77 16 127/72 98 Room Air 08/29/23 03:45 08/29/23 04:42 08/29/23 04:00 08/29/23 04:42 08/29/23 04:41 08/28/23 19:20 Notes Pain Intensity: 0 Dilatation (cm): 8.0 Effacement (%): 100 Called by nursing to evaluate epidural as the patient is having increased pain. The epidural was re-dosed with the following medications (all medications via epidural route) after negative aspiration of the epidural catheter for CSF/HEME. 2% lidocaine w epi 1:200,000 5ml with fentanyl 100mcg. After Epidural Re-Dose Mental Status: alert / awake / arousable Pain: improving with treatment Airway Patency, RR, SpO2: stable & adequate BP & HR: stable & adequate
[2023-08-29] MEDS ORDERED: ACETAMINOPHEN 500 MG TAB PO ONE (05:02)
--- NOTE | 2023-08-29 05:04 | Communication Note ---
Date of Service: August 29, 2023 After epidural dosed, fht 180s and flat. Discussed that if we maintain this, will need to move to c/s as still some time to delivery. Explained that we are doing all we can, but sometimes, a baby just does not tolerate labor. They express understanding.
--- NOTE | 2023-08-29 05:12 | Communication Note ---
Date of Service: August 29, 2023 fht more reassuring at this point. has had return to mod variability, small accels, baseline 170s. Will give po tylenol just to see if any improvement although the patient continues to be afebrile.
--- NOTE | 2023-08-29 05:28 | Communication Note ---
Date of Service: August 29, 2023 unfortunately, despite return of more reassuring variability, still baseline 180s and likely some lates. therefore moving toward c/s. Patient and fob a [place]. Consent reviewed and signed.
[2023-08-29] MEDS ORDERED: LIDOCAINE 2%/EPINEPHRINE 1:200,000 20 ML PF ONE (05:46)
[2023-08-29] MEDS ORDERED: CITRIC ACID/SODIUM CITRATE 15 ML UDC PO SCH (06:00)
[2023-08-29] MEDS ORDERED: ceFAZolin 2000MG 2,000 MG/15 ML SYR IV SCH (06:00)
[2023-08-29] MEDS ORDERED: AZITHROMYCIN 500 MG in DEXTROSE 5% 250 ML IV SCH (06:00)
[2023-08-29] MEDS ORDERED: ONDANSETRON INJ 2 MG/ML 2 ML VIAL ONE (06:20)
[2023-08-29] MEDS ORDERED: PHENYLEPHRINE 100MCG/ML 10ML SYR IV ONE (06:21)
[2023-08-29] MEDS ORDERED: MoRPHine SULFATE PF 1 MG/ML 10 ML AMP/VIAL ONE (06:23)
[2023-08-29] MEDS ORDERED: OXYTOCIN 10 UNITS/ML VIAL ONE ×2 (06:24)
[2023-08-29] MEDS ORDERED: CARBOPROST TROMETHAMINE 250 MCG/ML AMPUL ONE (06:31)
[2023-08-29 07:10] LABS: Base Excess Cord Arterial Bld -0.7 mEq/L (-9-1.8); CO2 Cord Arterial Blood 54 mmHg (39.1-73.5); HCO3 Cord Arterial Blood 27 mmol/L (19.7-28.5); Oxygen Sat Cord Arterial Blood < 60.0 % (<60); PO2 Cord Arterial Blood < 20 mmHg (4.1-31.7)
[2023-08-29 07:11] LABS: Base Excess Cord Venous Blood 0.5 mEq/L (-7.7-1.9); Cord Venous Blood HCO3 26 mmol/L (18.4-26.8); Cord Venous Blood PCO2 44 mmHg (30.4-57.2); Cord Venous Blood PO2 25 mmHg (14.1-43.3); Cord Venous Blood pH 7.38 (7.20-7.44); O2 Saturation Cord Venous Bld < 60.0 % (<68)
[2023-08-29] MEDS ORDERED: diphenhydrAMINE Capsule 25 MG CAP PO PRN (07:12)
[2023-08-29] MEDS ORDERED: SENNA 8.6 MG TAB PO PRN (07:12)
[2023-08-29] MEDS ORDERED: MAGNESIUM HYDROXIDE SUSP 30 ML UDC PO PRN (07:12)
[2023-08-29] MEDS ORDERED: HYDROCORTISONE ACETATE 25 MG SUPP PR PRN (07:12)
[2023-08-29] MEDS ORDERED: CARBOPROST TROMETHAMINE 250 MCG/ML AMPUL IM ONE (07:12)
[2023-08-29] MEDS ORDERED: LACTATED RINGER'S 1,000 ML IV SCH (07:12)
[2023-08-29] MEDS ORDERED: diphenhydrAMINE 50 MG/ML VIAL IV PRN (07:12)
[2023-08-29] MEDS ORDERED: PROMETHAZINE HCL 25 MG in SODIUM CHLORIDE 0.9% 50 ML IV PRN (07:12)
[2023-08-29] MEDS ORDERED: DIPHTHER/TETAN/PERTUS Vaccine (Tdap, Adol/Adult) 0.5mL IM ONE (07:12)
[2023-08-29] MEDS ORDERED: BENZOCAINE 20% SPRY 85 APPLN/85 GM CAN EXT PRN (07:12)
[2023-08-29] MEDS ORDERED: ONDANSETRON INJ 2 MG/ML 2 ML VIAL IV PRN (07:12)
--- NOTE | 2023-08-29 07:48 | Operative Report ---
[facility] Post Operative Report Pre & Post Diagnosis Operation Date: 08/29/23 05:20 Pre-Op Diagnosis: IUP AT 40.4 weeks Tachycardia Mec stained fluid Post-Op Diagnosis: IUP AT 40.4 weeks Tachycardia Mec stained fluid I identified the patient and participated in the time-out.: Yes Procedure Operation Date: 08/29/23 05:20 Actual Procedures p Primary cesearean section. Live male child at 0604 - Herminia Cavazos MD, FACOG Surgeon Herminia Cavazos MD, FACOG Damage Adjuster Dr. Beavers, PGY1 Estimated Blood Loss 600 Findings Consistent with Post-Op Diagnosis viable male infant, asynclitic. apgars pending. thick meconium nl utx/tubes/ov Fluids 700cc, uop 150cc Specimens none Drains doherty Anesthesia Type General Complications none Disposition Accompanied Patient To Recovery: No Disposition: L&D Indications 32yof iol for postdates. progressed to 8cm but developed tachycardia in the 180s , meconium and intermittent lates. Description of Procedure The patient was taken to the operating room where she was identified verbally and by bracelet. She was seated on the operating table where a spinal anesthetic was placed by anesthesia. She was then placed in the supine position with a leftward tilt. A Doherty catheter was placed sterilely. the patient was prepped and draped in a normal standard fashion. the anesthetic was tested and found to be adequate. A time-out was held, identifying correct patient, procedure, positioning and preoperative antibiotics. There were no concerns. A Pfannenstiel skin incision was made with a knife and taken down to the underlying layer of fascia with the knife and Bovie electrocautery. Bleeding was attended to with the Bovie. The fascia was incised in the midline with the knife and taken out laterally with scissors. The superior edge of the fascial incision was grasped, elevated and the underlying layer of rectus muscle was taken off bluntly and with scissors. In a similar fashion, the inferior edge of the fascial incision was grasped, elevated and the underlying layer of rectus muscle was taken off bluntly and with scissors. The muscles were bluntly in the midline. The peritoneum was entered bluntly. The incision was then stretched. The bladder blade was placed. The vesicouterine peritoneum was identified, entered with scissors and taken out laterally with scissors. The bladder flap was created digitally A hysterotomy incision was scored with a knife and the incision was stretched superiorly and inferiorly with the cnc mill operator's fingers. Thick meconium was noted. The operators hand was placed into the incision and the head was delivered atraumatically. No nuchal cord. The nose and mouth were bulb suctioned. the rest of the infant was then delivered without difficulty. The nose and mouth were again bulb suctioned. The infant was vigorous. The cord was clamped and cut and the infant was then handed off to the awaiting embroiderer hand for drying and attention. Cord blood and segment were obtained. The placenta was Manually extracted. The uterus was exteriorized and cleared of all clot and debris with moistened laparotomy sponges. The hysterotomy incision was repaired in two layers, the first in a running locked layer, the second in an imbricating layer. Hemostasis was noted to be good. Posterior cul-de-sac was irrigated and cleared of all clot and debris. The hysterotomy incision was again inspected and found to be hemostatic. the uterus was reinteriorized. Hysterotomy incision was again inspected and found to be hemostatic. Rectus muscles were reapproximated with several interrupted stitches of 0 Vicryl. The fascia was then reapproximated with 0 Vicryl starting at the edges and meeting in the midline. The subcuticular tissues were copiously irrigated and bleeding was attended to with cautery. The skin was then closed with 4-0 Vicryl in a subcuticular fashion. All sponge, lap, and needle counts correct x 2. She tolerated the procedure well and was transferred to recovery stable. I attest to the content of the Intraoperative Record and any orders documented therein. Any exceptions are noted below.
[2023-08-29] MEDS: SIMETHICONE 80 MG CHEW PO SCH ×4 (09:19→20:42)
[2023-08-29] MEDS: KETOROLAC 30 MG/ML VIAL IV PRN ×3 (09:24→23:32)
[2023-08-29] MEDS: OXYTOCIN 20 UNITS/LR 1,002 ML IV SCH ×2 (10:21→18:19)
--- NOTE | 2023-08-29 10:41 | Anesthesiology Progress Note ---
Date of Service August 29, 2023 Anesthesia Post Procedure Vital Signs Vital Signs: Temp Pulse Resp BP Pulse Ox O2 Del Method 08/29/23 09:56 77 94 08/29/23 09:55 77 95 08/29/23 09:51 78 141/69 H 08/29/23 09:50 77 96 08/29/23 09:45 75 96 08/29/23 09:41 74 134/71 08/29/23 09:40 75 96 08/29/23 09:35 73 96 08/29/23 09:31 82 154/83 H 08/29/23 09:30 80 97 08/29/23 09:26 113 H 92 08/29/23 09:25 115 H 96 08/29/23 09:21 79 142/70 H 08/29/23 09:20 87 97 08/29/23 09:15 87 96 08/29/23 09:12 103 H 189/90 H 08/29/23 09:11 105 H 92 08/29/23 09:10 111 H 95 08/29/23 09:05 77 96 08/29/23 09:01 75 134/77 08/29/23 09:00 75 96 08/29/23 08:55 78 94 08/29/23 08:51 73 134/77 08/29/23 08:50 74 96 08/29/23 08:45 73 97 08/29/23 08:43 90 94 08/29/23 08:41 85 147/87 H 08/29/23 08:40 85 96 08/29/23 08:35 111 H 97 08/29/23 08:34 91 H 144/88 H 08/29/23 08:31 84 131/99 08/29/23 08:30 88 97 08/29/23 08:25 86 97 08/29/23 08:21 114 H 124/74 08/29/23 08:20 101 H 97 08/29/23 08:15 96 H 96 08/29/23 08:11 80 131/77 08/29/23 08:10 80 97 08/29/23 08:05 103 H 98 08/29/23 08:01 93 H 135/80 08/29/23 08:00 85 98 08/29/23 07:55 89 97 08/29/23 07:51 77 140/82 08/29/23 07:50 16 08/29/23 07:50 80 97 08/29/23 07:46 74 133/78 08/29/23 07:45 78 97 08/29/23 07:41 73 136/86 08/29/23 07:40 77 97 08/29/23 07:35 73 97 08/29/23 07:31 77 137/78 08/29/23 07:30 16 08/29/23 07:30 74 97 08/29/23 07:25 84 99 08/29/23 07:21 90 135/78 08/29/23 07:20 100 H 99 08/29/23 07:15 90 99 08/29/23 07:11 94 H 133/76 08/29/23 07:10 16 08/29/23 07:10 91 H 99 08/29/23 07:05 111 H 99 08/29/23 07:01 90 134/78 08/29/23 07:00 16 08/29/23 07:00 91 H 98 08/29/23 06:55 93 H 97 08/29/23 06:51 90 133/79 08/29/23 06:50 37.2 C 16 08/29/23 06:50 92 H 98 08/29/23 06:45 108 H 98 08/29/23 06:41 93 H 132/77 08/29/23 06:40 115 H 98 08/29/23 05:41 97 08/29/23 05:41 94 H 08/29/23 05:41 116 H 121/59 L 08/29/23 05:36 83 99 08/29/23 05:31 88 97 08/29/23 05:30 20 08/29/23 05:30 20 08/29/23 05:26 105 H 97 08/29/23 05:22 102 H 94 08/29/23 05:21 79 95 08/29/23 05:16 88 97 08/29/23 05:11 107 H 140/78 96 08/29/23 05:06 88 95 08/29/23 05:01 83 97 08/29/23 05:00 18 08/29/23 05:00 18 08/29/23 04:56 133 H 98 08/29/23 04:55 107 H 129/76 08/29/23 04:51 112 H 98 08/29/23 04:48 81 130/70 08/29/23 04:46 83 98 08/29/23 04:43 18 08/29/23 04:43 37.2 C 18 08/29/23 04:42 77 127/72 08/29/23 04:41 98 08/29/23 04:41 82 08/29/23 04:41 89 120/63 08/29/23 04:39 82 131/70 08/29/23 04:38 98 H 94 08/29/23 04:37 75 129/68 08/29/23 04:36 76 99 08/29/23 04:35 77 123/64 08/29/23 04:32 74 120/65 08/29/23 04:31 78 96 08/29/23 04:30 18 08/29/23 04:30 18 08/29/23 04:26 80 99 08/29/23 04:21 86 97 08/29/23 04:19 84 114/59 L 08/29/23 04:16 93 H 98 08/29/23 04:11 79 96 08/29/23 04:06 79 96 08/29/23 04:03 73 141/77 H 08/29/23 04:01 76 96 08/29/23 04:00 16 08/29/23 04:00 16 08/29/23 03:56 77 97 08/29/23 03:51 82 97 08/29/23 03:48 76 135/77 08/29/23 03:46 81 97 08/29/23 03:45 36.7 C 08/29/23 03:41 79 98 08/29/23 03:36 74 97 08/29/23 03:33 73 135/78 08/29/23 03:31 75 96 08/29/23 03:26 77 97 08/29/23 03:21 74 97 08/29/23 03:18 74 136/79 08/29/23 03:16 75 97 08/29/23 03:11 86 97 08/29/23 03:06 90 96 08/29/23 03:03 77 130/63 08/29/23 03:01 83 95 08/29/23 03:00 18 08/29/23 03:00 18 08/29/23 03:00 18 08/29/23 03:00 18 08/29/23 02:56 80 97 08/29/23 02:51 76 96 08/29/23 02:47 37.6 C H 08/29/23 02:47 37.6 C H 75 121/64 08/29/23 02:46 76 97 08/29/23 02:44 78 123/56 L 08/29/23 02:41 106 H 97 08/29/23 02:36 80 96 08/29/23 02:31 76 97 08/29/23 02:30 16 08/29/23 02:30 16 08/29/23 02:26 80 96 08/29/23 02:21 80 97 08/29/23 02:18 78 134/70 08/29/23 02:16 79 97 08/29/23 02:11 86 98 08/29/23 02:06 80 97 08/29/23 02:03 79 136/77 08/29/23 02:01 84 97 08/29/23 02:00 16 08/29/23 02:00 16 08/29/23 01:56 78 97 08/29/23 01:51 83 97 08/29/23 01:47 76 132/72 08/29/23 01:46 77 97 08/29/23 01:45 37.5 C 08/29/23 01:41 85 97 08/29/23 01:36 122 H 98 08/29/23 01:31 111 H 100 08/29/23 01:30 18 08/29/23 01:30 18 08/29/23 01:26 80 97 08/29/23 01:21 106 H 96 08/29/23 01:16 98 H 115/77 96 08/29/23 01:11 107 H 97 08/29/23 01:06 106 H 96 08/29/23 01:01 106 H 121/74 97 08/29/23 01:00 16 08/29/23 01:00 16 08/29/23 00:56 81 96 08/29/23 00:51 82 96 08/29/23 00:47 108 H 128/80 08/29/23 00:46 101 H 98 08/29/23 00:41 80 96 08/29/23 00:36 109 H 97 08/29/23 00:31 94 H 124/71 97 08/29/23 00:30 18 08/29/23 00:30 18 08/29/23 00:26 91 H 98 08/29/23 00:22 37.1 C 08/29/23 00:21 105 H 98 08/29/23 00:16 86 96 08/29/23 00:12 83 128/80 08/29/23 00:11 88 97 08/29/23 00:06 76 98 08/29/23 00:01 98 H 98 08/29/23 00:00 16 08/29/23 00:00 16 08/28/23 23:56 97 08/28/23 23:56 86 08/28/23 23:55 74 08/28/23 23:55 111/59 L 08/28/23 23:51 97 08/28/23 23:51 75 08/28/23 23:46 97 08/28/23 23:46 122 H 08/28/23 23:44 37.1 C 08/28/23 23:41 96 08/28/23 23:41 80 08/28/23 23:40 83 08/28/23 23:40 121/69 08/28/23 23:36 97 08/28/23 23:36 86 08/28/23 23:31 96 08/28/23 23:31 81 08/28/23 23:30 16 08/28/23 23:30 16 08/28/23 23:26 96 08/28/23 23:26 81 08/28/23 23:25 95 H 08/28/23 23:25 108/67 08/28/23 23:21 96 08/28/23 23:21 90 08/28/23 23:16 97 08/28/23 23:16 108 H 08/28/23 23:13 37.5 C 08/28/23 23:11 97 08/28/23 23:11 92 H 08/28/23 23:11 101 H 08/28/23 23:11 122/73 08/28/23 23:06 96 08/28/23 23:06 90 08/28/23 23:01 96 08/28/23 23:01 109 H 08/28/23 23:00 16 08/28/23 23:00 16 08/28/23 22:56 96 08/28/23 22:56 82 08/28/23 22:55 88 08/28/23 22:55 112/64 08/28/23 22:51 96 08/28/23 22:51 85 08/28/23 22:46 96 08/28/23 22:46 101 H 08/28/23 22:41 97 08/28/23 22:41 79 08/28/23 22:41 93 H 08/28/23 22:41 109/66 08/28/23 22:36 97 08/28/23 22:36 79 08/28/23 22:31 97 08/28/23 22:31 104 H 08/28/23 22:30 16 08/28/23 22:30 16 08/28/23 22:26 96 08/28/23 22:26 83 08/28/23 22:25 77 08/28/23 22:25 112/59 L 08/28/23 22:21 96 08/28/23 22:21 80 08/28/23 22:16 96 08/28/23 22:16 86 08/28/23 22:13 111 H 08/28/23 22:13 106/59 L 08/28/23 22:11 97 08/28/23 22:11 78 08/28/23 22:10 93 H 08/28/23 22:10 101/57 L 08/28/23 22:06 97 08/28/23 22:06 81 08/28/23 22:01 97 08/28/23 22:01 88 08/28/23 22:00 16 08/28/23 22:00 16 08/28/23 21:56 97 08/28/23 21:56 100 H 08/28/23 21:55 82 08/28/23 21:55 104/61 08/28/23 21:51 99 08/28/23 21:51 91 H 08/28/23 21:49 36.7 C 08/28/23 21:46 99 08/28/23 21:46 103 H 08/28/23 21:41 98 08/28/23 21:41 80 08/28/23 21:41 85 08/28/23 21:41 107/68 08/28/23 21:36 97 08/28/23 21:36 77 08/28/23 21:31 98 08/28/23 21:31 104 H 08/28/23 21:30 16 08/28/23 21:30 16 08/28/23 21:26 97 08/28/23 21:26 88 08/28/23 21:21 98 08/28/23 21:21 88 08/28/23 21:16 98 08/28/23 21:16 75 08/28/23 21:11 98 08/28/23 21:11 96 H 08/28/23 21:06 98 08/28/23 21:06 76 08/28/23 21:01 98 08/28/23 21:01 93 H 08/28/23 21:00 16 08/28/23 21:00 16 08/28/23 20:56 99 08/28/23 20:56 74 08/28/23 20:55 85 08/28/23 20:55 115/67 08/28/23 20:51 99 08/28/23 20:51 84 08/28/23 20:46 97 08/28/23 20:46 72 08/28/23 20:41 98 08/28/23 20:41 78 08/28/23 20:40 18 08/28/23 20:40 36.8 C 18 08/28/23 20:40 97 H 08/28/23 20:40 106/61 08/28/23 20:36 100 08/28/23 20:36 111 H 08/28/23 20:31 99 08/28/23 20:31 86 08/28/23 20:31 114 H 08/28/23 20:31 114/70 08/28/23 20:30 18 08/28/23 20:30 18 08/28/23 20:26 98 08/28/23 20:26 65 08/28/23 20:26 125 H 08/28/23 20:26 104/71 08/28/23 20:22 75 08/28/23 20:22 125/74 08/28/23 20:21 97 08/28/23 20:21 70 08/28/23 20:17 71 08/28/23 20:17 138/63 08/28/23 20:16 98 08/28/23 20:16 74 08/28/23 20:12 67 08/28/23 20:12 123/70 01/25/24 20:11 97 08/28/23 20:11 66 08/28/23 20:06 99 08/28/23 20:06 124 H 08/28/23 20:06 69 08/28/23 20:06 126/72 08/28/23 20:01 97 08/28/23 20:01 123 H 08/28/23 20:01 76 08/28/23 20:01 123/73 08/28/23 20:00 16 08/28/23 20:00 16 08/28/23 19:56 98 08/28/23 19:56 67 08/28/23 19:56 126 H 08/28/23 19:56 86/61 L 08/28/23 19:51 97 08/28/23 19:51 71 08/28/23 19:51 125/71 08/28/23 19:46 97 08/28/23 19:46 71 08/28/23 19:46 122/68 08/28/23 19:41 99 08/28/23 19:41 72 08/28/23 19:41 108/65 08/28/23 19:36 99 08/28/23 19:36 67 08/28/23 19:31 98 08/28/23 19:31 79 08/28/23 19:30 16 08/28/23 19:30 16 08/28/23 19:30 72 08/28/23 19:30 131/70 08/28/23 19:26 99 08/28/23 19:26 110 H 08/28/23 19:22 106 H 08/28/23 19:22 93/51 L 08/28/23 19:21 98 08/28/23 19:21 103 H 08/28/23 19:20 Room Air 08/28/23 19:18 102 H 08/28/23 19:18 107/59 L 08/28/23 19:16 100 08/28/23 19:16 64 08/28/23 19:14 75 08/28/23 19:14 118/69 08/28/23 19:13 18 08/28/23 19:13 36.6 C 18 08/28/23 19:11 98 08/28/23 19:11 99 H 08/28/23 19:09 110 H 08/28/23 19:09 114/70 08/28/23 19:08 96 H 08/28/23 19:08 106/66 08/28/23 19:06 100 08/28/23 19:06 95 H 08/28/23 19:05 74 08/28/23 19:05 134/75 08/28/23 19:04 80 08/28/23 19:04 122/72 08/28/23 19:01 98 08/28/23 19:01 96 H 08/28/23 19:01 104/68 08/28/23 18:59 87 08/28/23 18:59 102/61 08/28/23 18:57 75 08/28/23 18:57 96/53 L 08/28/23 18:56 100 08/28/23 18:56 76 08/28/23 18:56 98/56 L 08/28/23 18:56 92 H 08/28/23 18:56 91/42 L 08/28/23 18:54 92 H 08/28/23 18:54 136/57 L 08/28/23 18:52 107 H 08/28/23 18:52 118/69 08/28/23 18:51 98 08/28/23 18:51 110 H 08/28/23 18:49 85 08/28/23 18:49 106/55 L 08/28/23 18:47 117 H 08/28/23 18:47 101/59 L 08/28/23 18:46 99 08/28/23 18:46 109 H 08/28/23 18:45 98 H 08/28/23 18:45 107/57 L 08/28/23 18:43 102 H 08/28/23 18:43 106/60 08/28/23 18:41 98 08/28/23 18:41 71 08/28/23 18:41 113/63 08/28/23 18:39 78 08/28/23 18:39 121/74 08/28/23 18:38 71 08/28/23 18:38 131/71 08/28/23 18:36 100 08/28/23 18:36 83 08/28/23 18:31 99 08/28/23 18:31 76 08/28/23 18:26 75 L 08/28/23 18:26 87 08/28/23 18:26 74 L 08/28/23 18:26 87 08/28/23 16:14 76 08/28/23 16:14 123/79 08/28/23 15:47 71 08/28/23 15:47 109/67 08/28/23 15:17 71 08/28/23 15:17 134/78 08/28/23 14:47 71 08/28/23 14:47 128/80 08/28/23 14:18 20 08/28/23 14:18 20 08/28/23 14:18 75 08/28/23 14:18 140/85 08/28/23 13:17 63 08/28/23 13:17 123/75 08/28/23 12:46 68 08/28/23 12:46 141/85 H 08/28/23 12:45 83 08/28/23 12:45 151/96 H Pain Intensity Perineal: Pain Intensity: 0 Lower Abdomen: Pain Intensity: 2 Transfer of Care Handoff Completed per policy Notes Mental Status: alert / awake / arousable and participated in evaluation Patient Amnestic to Procedure: Yes Nausea / Vomiting: adequately controlled Pain: adequately controlled Airway Patency, RR, SpO2: stable & adequate BP & HR: stable & adequate Hydration State: stable & adequate Anesthetic Complications: no major complications apparent and Pt Satisfied with anesthetic care
[2023-08-29] MEDS: DOCUSATE SODIUM 100 MG CAP PO SCH ×2 (11:10→20:42)
[2023-08-29] MEDS: PRENATAL VITAMIN 1 TAB PO SCH (11:11)
[2023-08-29] MEDS: FERROUS SULFATE 325 MG TAB PO SCH (11:11)
[2023-08-29] MEDS ORDERED: ACETAMINOPHEN 500 MG TAB PO PRN (19:25)
[2023-08-30] MEDS: oxyCODONE/ACETAMINOPHEN 5mg/325mg TAB PO PRN ×4 (03:10→19:59)
--- NOTE | 2023-08-30 06:23 | Obstetrical Progress Note ---
Date of Service <Oriana Dillon Nimesh - Last Filed: 08/30/23 06:28> August 30, 2023 Assessment & Plan <Oriana Dillon DO Nimesh - Last Filed: 08/30/23 06:28> (1) care following delivery: Plan Feels well today overall but is more tender, Eating well, not yet voiding, not yet ambulating. Routine care; OOB, ambulation, diet progression as tolerated. Pain control with ibuprofen/tylenol/percocet. Anticipate discharge 48-72 hours or so after c section delivery, earliest for her likely Friday. After discharge will have 6 week follow-up with Dr. Cavazos. <Ting Khan MD - Last Filed: 08/30/23 07:41> (1) care following delivery: Subjective <Oriana Benitezangus - Last Filed: 08/30/23 06:28> Pt is a 33 y/o female who is POD#1 following delivery for tachycardia at 40 weeks. Pt states she is feeling more tender today, especially when breast feeding or when standing. She states that she has not been up much at all yet since her delivery and that she has not yet voided since removing the catheter this am, but has tolerated po intake. She is breast feeding and states it is going okay so far. No questions at this time. Bleeding has improved. Constitutional: no fever, no chills or no sweats Respiratory: no dyspnea Cardiovascular: no chest pain or no palpitations Breast: no breast pain Genitourinary (female): no dysuria Neurologic: no headache(s) no changes in vision, no headaches Physical Exam <Oriana Dillon Nimesh - Last Filed: 08/30/23 06:28> General: Alert, oriented. No acute distress. Cardiac: Regular rate and rhythm, no murmurs, rubs, or gallops. Respiratory: Clear to auscultation bilaterally, no wheezes/rales/rhonchi. No increased work of breathing. Symmetrical chest rise. No respiratory distress. Abdomen: Soft, nontender, nondistended. Bowel sounds present. Uterus: Uterine fundus firm, palpable below the umbilicus. Surgical scar clean and healing well, serous bloody discharge noted on bandage but none seeping from the wound this morning. Lower extremities: No lower extremity edema or swelling. No deep calf pain. Results & Data <Oriana Beavers DO - Last Filed: 08/30/23 06:28> Vital Signs (Past 12 Hours) Vital Signs Temp Pulse Resp BP BP Pulse Ox O2 Del Method 08/30/23 03:00 36.8 C 77 18 100/57 L 94 Room Air 08/30/23 01:14 20 97 08/30/23 00:30 18 98 08/29/23 23:45 20 97 08/29/23 22:37 18 96 08/29/23 22:30 37.2 C 76 18 113/72 95 Room Air 08/29/23 21:30 20 98 08/29/23 20:42 37.4 C 08/29/23 20:30 18 97 08/29/23 19:10 20 98 08/29/23 19:10 Room Air 08/29/23 19:01 37.7 C H 78 18 119/64 95 Room Air Supervising Physician <Ting Khan MD - Last Filed: 08/30/23 07:41> Co-Signing Physician Notes Resident Physician Supervision Note: I interviewed and examined the patient. Discussed with Dr. Beavers and agree with findings and plan as documented in the note. Any exceptions or clarifications are listed here: POD1 s/p pLTCS. Meeting all milestones, did recently void. VSS, exam benign and wnl. Incision c/d/i. Continue routine pp care, discussed ambulation and pain management, abd binder Documented By: Ting Khan MD Resident Activity Tracking <Oriana Beavers DO - Last Filed: 08/30/23 06:28> Resident Involvement: Resident Care Provided Care Provided: OB Delivery
[2023-08-30 06:43] LABS: Basophils # (auto) 0.06 K/uL (0.00-0.20); Basophils % (auto) 0.4 %; Eosinophils % (auto) 0.7 %; Hemoglobin 8.7 g/dl (12.0-16.0); Immature Granulocytes # (auto) 0.08 K/uL (0.01-0.20); Immature Granulocytes % (auto) 0.6 %; Lymphocytes # (auto) 2.46 K/uL (1.20-3.40); Lymphocytes % (auto) 17.4 %; Mean Corpuscular Hemoglobin 27.1 pg (25.0-34.0); Mean Corpuscular Hgb Conc 33.5 g/dL (32.0-36.0); Mean Platelet Volume 11.5 fL (9.4-12.4); Monocytes # (auto) 1.12 K/uL (0.11-0.59); Monocytes % (auto) 7.9 %; Neutrophils # (auto) 10.32 K/uL (1.40-6.50); Platelet Count 189 K/uL (130-400); RDW Standard Deviation 47.3 fL (36.4-46.3); Red Blood Count 3.21 M/uL (4.20-5.40); White Blood Count 14.14 K/ul (4.8-10.8)
[2023-08-30] MEDS: FERROUS SULFATE 325 MG TAB PO SCH (09:47)
[2023-08-30] MEDS: SIMETHICONE 80 MG CHEW PO SCH ×4 (09:47→19:59)
[2023-08-30] MEDS: DOCUSATE SODIUM 100 MG CAP PO SCH ×2 (09:47→19:59)
[2023-08-30] MEDS: PRENATAL VITAMIN 1 TAB PO SCH (09:47)
[2023-08-30] MEDS ORDERED: ACETAMINOPHEN 325 MG TAB PO PRN (12:28)
[2023-08-30] MEDS: IBUPROFEN 600 MG TAB PO PRN ×2 (12:46→19:59)
[2023-08-30] MEDS ORDERED: bisacodyL 5 MG TABEC PO SCH (20:00)
[2023-08-31] MEDS: oxyCODONE/ACETAMINOPHEN 5mg/325mg TAB PO PRN ×4 (01:23→21:58)
[2023-08-31] MEDS: IBUPROFEN 600 MG TAB PO PRN ×4 (01:23→21:59)
[2023-08-31 06:32] LABS: Basophils # (auto) 0.06 K/uL (0.00-0.20); Basophils % (auto) 0.5 %; Eosinophils % (auto) 1.8 %; Hematocrit (blood only) 28.4 % (37.0-47.0); Hemoglobin 9.5 g/dl (12.0-16.0); Immature Granulocytes # (auto) 0.08 K/uL (0.01-0.20); Immature Granulocytes % (auto) 0.7 %; Lymphocytes # (auto) 2.64 K/uL (1.20-3.40); Lymphocytes % (auto) 23.6 %; Mean Corpuscular Hemoglobin 27.2 pg (25.0-34.0); Mean Corpuscular Hgb Conc 33.5 g/dL (32.0-36.0); Mean Corpuscular Volume 81.4 fL (80.0-100.0); Mean Platelet Volume 10.9 fL (9.4-12.4); Monocytes # (auto) 0.73 K/uL (0.11-0.59); Monocytes % (auto) 6.5 %; Neutrophils # (auto) 7.49 K/uL (1.40-6.50); Neutrophils % (auto) 66.9 %; Platelet Count 230 K/uL (130-400); RDW Standard Deviation 47.5 fL (36.4-46.3); Red Blood Count 3.49 M/uL (4.20-5.40)
[2023-08-31] MEDS ORDERED: bisacodyL 10 MG SUPP PR PRN (06:42)
[2023-08-31] MEDS: PRENATAL VITAMIN 1 TAB PO SCH (07:30)
[2023-08-31] MEDS: SIMETHICONE 80 MG CHEW PO SCH ×4 (07:31→20:42)
[2023-08-31] MEDS: DOCUSATE SODIUM 100 MG CAP PO SCH ×2 (07:31→20:42)
[2023-08-31] MEDS: FERROUS SULFATE 325 MG TAB PO SCH (07:33)
--- NOTE | 2023-08-31 08:28 | Obstetrical Progress Note ---
Date of Service August 31, 2023 Assessment & Plan (1) care following delivery: Plan stable, routine care. really needs to move more, no reason she cannot other than her lack of willingness. it will help her bowels, her perception of swelling, her soreness etc and get her ready to go home tomorrow. needs to begin to be more independent in anticipation of such and i told her so. rh pos, ri, breast feeding--not really getting baby to breast, enc her to use support of team of nurses here. she is using formula. enc to latch baby if her intention is to nurse. Day #:: 2 Subjective Ambulation: ambulating normally Voiding: no voiding problems Passing Gas:: Yes Diet Tolerance:: regular diet Lochia:: Small Feeding Type:: breast feeding pt notes some calf soreness yesterday and swelling of LE. she has not been walking in halls. passing gas. per nursing calling for help alot, to move baby, get up to void etc. Constitutional: + as per Subjective / HPI Physical Exam Constitutional WD/WN, vitals as above Respiratory normal respiratory effort, lungs clear to auscultation Cardiovascular Rate/Rhythm: regular rate and regular rhythm Gastrointestinal (Abdomen) Inspection/Auscultation: abdomen normal to inspection and + abdominal surgical incision (c/d/i with steris) Percussion/Palpation: abdomen soft Fundus firm 2cm down Musculoskeletal nt calves no edema Neurologic grossly normal Psychiatric A+Ox3, euthymic affect Results & Data Vital Signs (Past 12 Hours) Vital Signs Temp Pulse Resp BP Pulse Ox O2 Del Method 08/31/23 07:00 97.9 F 61 18 127/79 98 Room Air 08/30/23 23:10 98.1 F 76 20 137/84 Room Air
--- NOTE | 2023-08-31 10:40 | Communication Note ---
Date of Service: August 31, 2023 went to check on pt to see if she walked the halls. she was resting in bed. she says she moved in room and then had left sided pain and felt dizzy and nauseous and went back to bed. today's hgb noted. she is enc to get up and move in halls and increase her conditioning as she will go home tomorrow most likely and will need to care for herself and baby in larger space. her vss. she asked about binder, apparently one by her bedside due to this request yesterday. she wants nursing to help her put on and they let me know they tried to help her with that yesterday but then she wanted taken off. either way she wants to do, i rec she move more. explained that some pain she will have to push through due to having surgery and explained uterine size at this point so all pain will not be at site of incision. she needs to walk more to help bowel function and dec risk of pneumonia and blood clots. she verbalized understanding.
--- NOTE | 2023-09-01 06:29 | Obstetrical Progress Note ---
Date of Service <Oriana Beavers DO - Last Filed: 09/01/23 06:40> September 01, 2023 Assessment & Plan <Oriana Beavers DO - Last Filed: 09/01/23 06:40> (1) care following delivery: Plan Pt overall is improving, more ambulatory and pain is overall less, lochia improving. Explained to pt that nausea yesterday likely related to constipation, which she is at risk for since she is post-op + not moving around as much + taking percocet, so she will need to continue to take milk of mag or other laxative to help keep bowels moving to avoid getting backed up Pt appears a little dry so headache may be due to poor sleep here +/- a little dehydrated, BPs have been 120-130s systolic. Encouraged po fluid intake. Continue with routine care, encourage pt to be active during the day today and keep hydrated. Anticipate discharge 48-72 hours or so after c section delivery, maybe today, but may be tomorrow After discharge will have 6 week follow-up with Dr. Cavazos. <Ivana Torres MD, FACOG - Last Filed: 09/01/23 07:06> (1) care following delivery: Subjective <Oriana Beavers DO - Last Filed: 09/01/23 06:40> Pt is a 33 y/o female who is POD#3 following delivery for tachycardia at 40 weeks. Today, pt states that her pain is a little better than yesterday and that she was trying to be up and moving about more yesterday. She states she had milk of mag yesterday and was able to have a BM yesterday during the day. She states that she was feeling very nauseated yesterday without vomiting and that she was not having a good appetite but that it improved after she had a BM. She also notes having a headache this morning on the L side, notes that she has a hx of migraines, which started last night. She has been passing gas and voiding without issue. She notes area of achy pain this morning of her R arm and LLQ of abdomen. She states her bleeding has improved and she is now bleeding only a little bit. Breast feeding is going well. Constitutional: no fever or no chills Respiratory: no dyspnea Cardiovascular: no chest pain or no palpitations Breast: no breast pain Genitourinary (female): no dysuria Neurologic: + headache(s) no changes in vision Physical Exam <Oriana Beavers DO - Last Filed: 09/01/23 06:40> General: Alert, oriented. No acute distress. Appears a bit dry today. Cardiac: Regular rate and rhythm, no murmurs, rubs, or gallops. Respiratory: Clear to auscultation bilaterally, no wheezes/rales/rhonchi. No increased work of breathing. Symmetrical chest rise. No respiratory distress. Abdomen: Soft, nontender, nondistended. Bowel sounds present. Uterus: Uterine fundus firm, surgical incision healing nicely without discharge or surrounding erythema, steri-strips in place across wound Lower extremities: No deep calf pain. Results & Data <Oriana Beavers DO - Last Filed: 09/01/23 06:40> Vital Signs (Past 12 Hours) Vital Signs Temp Pulse Resp BP Pulse Ox O2 Del Method 08/31/23 22:56 36.7 C 66 18 129/84 94 Room Air 08/31/23 19:00 37.1 C 68 18 138/88 97 Room Air Supervising Physician <Ivana Torres MD, FACOG - Last Filed: 09/01/23 07:06> Co-Signing Physician Notes Resident Physician Supervision Note: I was present with Dr. Beavers during the history and exam. I discussed the case with the resident and agree with the findings and plan as documented in the note. Any exceptions or clarifications are listed here: stable doing well. some musculoskel pain and on and off marquez's. no bp issues. eating, walking, voiding, pain well controlled. abd soft ff 2 down appro tenderness, ext nt calves. pod#3 s/p c/s, ready for dc home, instructions reviewed. rh pos, . f/u 6 wk pp check. Documented By: Ivana Torres MD, FACOG Resident Activity Tracking <Oriana Beavers DO - Last Filed: 09/01/23 06:40> Resident Involvement: Resident Care Provided Care Provided: OB Delivery
[2023-09-01] MEDS: oxyCODONE/ACETAMINOPHEN 5mg/325mg TAB PO PRN (06:35)
[2023-09-01] MEDS: IBUPROFEN 600 MG TAB PO PRN (06:35)
[2023-09-01] MEDS: DOCUSATE SODIUM 100 MG CAP PO SCH (08:18)
[2023-09-01] MEDS: FERROUS SULFATE 325 MG TAB PO SCH (08:18)
[2023-09-01] MEDS: PRENATAL VITAMIN 1 TAB PO SCH (08:18)
[2023-09-01] MEDS: SIMETHICONE 80 MG CHEW PO SCH (08:19)
== END 2023-09-01 15:00 | disposition home or self-care (01) | DRG 788 ==
LOC: 4S1 08-28 07:37 → 4E2 08-29 10:15
DX: O76 Abnormality in fetal heart rate and rhythm complicating labor and delivery; Z37.0 Single live birth; Z3A.40 40 weeks gestation of pregnancy; O48.0 Post-term pregnancy